=== PATIENT | female | born 1955 | race Caucasian/White ===

== ENCOUNTER 2016-07-07 14:09 | Outpatient (CLI) | payer OTHER | END 2016-07-07 14:10 | disposition home or self-care (01) | LOC: NC 14:09 | PROVIDERS: ATTEND Family Medicine | DX: E11.649 Type 2 diabetes mellitus with hypoglycemia without coma (principal); Z71.3 Dietary counseling and surveillance; Z87.891 Personal history of nicotine dependence; Z68.33 Body mass index [BMI] 33.0-33.9, adult; Z79.4 Long term (current) use of insulin; Z99.3 Dependence on wheelchair ==

== ENCOUNTER 2016-07-14 12:53 | Outpatient (CLI) | payer OTHER | END 2016-07-14 12:54 | disposition home or self-care (01) | LOC: NC 12:53 | PROVIDERS: ATTEND Family Medicine | DX: E11.9 Type 2 diabetes mellitus without complications (principal) ==

== ENCOUNTER 2016-07-26 16:04 | Outpatient (CLI) | payer OTHER | END 2016-07-26 16:05 | disposition home or self-care (01) | LOC: NC 16:04 | PROVIDERS: ATTEND Internal Medicine | DX: E11.649 Type 2 diabetes mellitus with hypoglycemia without coma (principal); Z71.3 Dietary counseling and surveillance; Z68.32 Body mass index [BMI] 32.0-32.9, adult; Z87.891 Personal history of nicotine dependence; I50.9 Heart failure, unspecified; I10 Essential (primary) hypertension ==

== ENCOUNTER 2016-08-11 14:51 | Outpatient (CLI) | payer OTHER | END 2016-08-11 14:52 | disposition home or self-care (01) | LOC: NC 14:51 | PROVIDERS: ATTEND Internal Medicine | DX: E11.649 Type 2 diabetes mellitus with hypoglycemia without coma (principal); Z71.3 Dietary counseling and surveillance; Z68.28 Body mass index [BMI] 28.0-28.9, adult; Z87.891 Personal history of nicotine dependence ==